=== PATIENT | female | born 1975 | race Two or more races ===

== ENCOUNTER 2025-01-25 04:31 | Emergency (ER) | payer MEDICAID, SELFPAY ==
[2025-01-25 04:32] VITALS: BMI 32.3
[2025-01-25 04:58] VITALS: BP 183/119; BP 200/119; PULSE 111; RESP 18; TEMP 37.2; O2SAT 100
--- NOTE | 2025-01-25 05:04 | XR_ITS ---
Examination: Ultrasound soft tissue scalp Technique: Grayscale sonographic images soft tissue scalp Date and time: January 25, 2025, 0710 hrs. Indications: Lump on the posterior head noticed 3 days ago. Findings: Soft tissues cystic solid mass with minimal vascularity in the posterior scalp at the area concern, 4.7 x 4.3 x 2.2 cm Impression: Recommend CT scan brain post intravenous contrast follow-up to assess partially cystic partially solid mass with minimal vascularity in the posterior scalp, 4.7 x 4.3 x 2.2 cm
--- NOTE | 2025-01-25 05:05 | PD.EDRME ---
Rapid Medical Screening Exam [facility] Arrival date/time: 01/25/25 04:31 49F with history of alcohol use presents to ED with several days of worsening painful growth on posterior scalp. Chief Complaint: Animal Bite Vital signs: Vital Signs Temperature 98.9 F 01/25/25 04:58 Pulse Rate 111 H 01/25/25 04:58 Respiratory Rate 18 01/25/25 04:58 Blood Pressure 183/119 H 01/25/25 04:58 Pulse Oximetry (%) 100 01/25/25 04:58 Oxygen Delivery Method Room Air 01/25/25 04:58
[2025-01-25] MEDS: HYDROcodone/APAP 5/325 TABLET 1 TAB PO (05:13)
[2025-01-25 06:18] LABS: Sed Rate (ESR) 33 mm/hr (0-20)
[2025-01-25 06:21] LABS: Basophils # (Auto) 0.1 Thou/mm3 (0.0-0.2); Basophils % (Auto) 0 % (0-2.5); Eosinophils # (Auto) 0.1 Thou/mm3 (0.0-0.5); Eosinophils % (Auto) 0 % (0-10); Hematocrit 37.6 % (36.0-46.0); Hemoglobin 12.0 g/dL (12.0-16.0); Immature Granulocytes Auto 0.08 Thou/mm3 (0.00-0.00); Lymphocytes # (Auto) 2.0 Thou/mm3 (1.0-4.8); Lymphocytes % (Auto) 10 % (10-50); Mean Corpuscular HGB Conc 31.9 g/dl (31.0-37.0); Mean Corpuscular Hemoglobin 26.5 pg (25.0-35.0); Mean Corpuscular Volume 83 fL (80-100); Monocytes # (Auto) 1.3 Thou/mm3 (0.0-0.8); Monocytes % (Auto) 7 % (0-12); Neutrophils # (Auto) 16.6 Thou/mm3 (1.8-7.7); Neutrophils % (Auto) 82 % (37-80); Nucleated Red Blood Cell # 0.00 Thou/mm3 (0.00-0.00); Nucleated Red Blood Cell % 0 /100 WBC (0); Platelet Count 361 Thou/mm3 (140-440); RDW Standard Deviation 41.2 fL (36.4-46.3); Red Blood Count 4.52 Miln/mm3 (4.00-5.20); White Blood Count 20.1 Thou/mm3 (3.6-11.0)
[2025-01-25 06:41] LABS: Alanine Aminotransferase 18 U/L (10-49); Albumin, Serum 4.5 gm/dL (3.5-5.0); Albumin/Globulin Ratio 1.6 (1.2-2.2); Alkaline Phosphatase 91 U/L (46-116); Anion Gap 9 (7-16); Aspartate Amino Transferase 21 U/L (0-34); BUN/Creatinine Ratio 11 Ratio (12-20); Bilirubin,Total 1.0 mg/dL (0.3-1.2); Blood Urea Nitrogen 8 mg/dL (9-23); C-Reactive Protein 7.6 mg/dL (0.0-0.9); Calcium 9.4 mg/dL (8.3-10.6); Calcium (Corrected) 9.4 mg/dL (8.5-10.1); Carbon Dioxide 28.2 mMol/L (20.0-31.0); Chloride 101 mMol/L (98-107); Creatinine (Component) 0.7 mg/dL (0.6-1.3); Estimated Creatinine Clearance 85.3 mL/min (>60); Globulin 2.9 gm/dL (2.3-3.5); Glucose 108 mg/dL (74-106); Osmolality,Calculated 274 (275-295); Potassium 3.6 mMol/L (3.4-5.1); Sodium 138 mMol/L (136-145); Total Protein 7.4 gm/dL (5.7-8.2); eGFR > 60 See Note
--- NOTE | 2025-01-25 07:42 | EDNOTE_ITS ---
ED Animal Bite RME/HPI General Chief Complaint: Animal Bite Stated Complaint: POSS SPIDER BITE ON NECK Time Seen by Provider: 01/25/25 05:18 Arrival date/time: 01/25/25 04:31 RME / HPI RME / HPI narrative: 01/25/25 04:31 49F with history of alcohol use presents to ED with several days of worsening painful growth on posterior scalp. Ms Avelar is a 49-year-old female with past medical history of alcohol use who presented to [facility] emergency department 01/25/2025 with a chief complaint of worsening painful growth of posterior scalp. Patient does not remember immediate contact with any animal and is unable to attribute the swelling to animal bite on questioning patient reports that she might have had an bug bite/spider bite. She reported that her swelling has gotten worse over the last days she has been using [id number] Tylenol for management of pain. She denies any other symptoms no focal neurological deficits, patient is hemodynamically stable, elevated blood pressure reading noted likely secondary to pain as patient is complaining of severe pain. Patient does report daily alcohol use denies any history of withdrawals. Related Data Previous Rx's ?Medication ?Instructions ?Recorded albuterol sulfate 90 mcg/actuation 2 puff inhalation Q 4H PRN 10/14/17 aerosol inhaler shortness of breath or wheez ing #18 grams loratadine 10 mg tablet 10 mg PO QDAY PRN allergy sy mptoms 10/14/17 #30 tabs clindamycin HCl 300 mg capsule 450 mg (1.5 x 300 mg) P O TID Scalp 01/25/25 Abscess 7 days #32 caps hydrocodone 5 mg-acetaminophen 325 1 tab PO TID PRN pa in (scale score 01/25/25 mg tablet 5-10) 7 days #21 tabs ibuprofen 800 mg tablet 800 mg PO Q8H PRN pain (scal e 01/25/25 score 1-5) 7 days #21 tabs Allergies Allergy/AdvReac Type Severity Reaction Status Date / Time No Known Allergies Allergy Verified 04/21/23 20:29 Review of Systems Review of Systems Systems Reviewed: All systems reviewed, normal except as documented Past Medical History Past Medical History Comments PMH COMMENT: PMH: Positive for alcohol use PSHx: Denies Allergies:NKDFA Social history: -Smoking: Denies -Alcohol Use: Daily Alcohol Use -Illicit Drug Use: Denies Family History: No Pertinent Family History ED Exam Narrative Physical exam: Physical Exam General: Awake and in moderate distress, crying with pain. Conversational. HEENT: Normocephalic, atraumatic, mucous membranes moist. Heart: Sinus tachycardia, no murmurs. Lungs: Clear to auscultation with no wheezing or crackles. Abdomen: Soft, nondistended, nontender, positive bowel sounds. ?No guarding or rebound tenderness. Neurologic: Alert and oriented x3, no gross neurological deficit, and patient able to move all 4 extremities. Extremities: No edema. Skin: Fluctuant swelling around 4 to 2 cm noted on left posterior scalp, with redness tenderness and clear drainage. Course Course Course Narrative: Patient presented to ED room from triage, white count elevated, tachycardia SIRS 2/4 sepsis alert initiated. Patient's lactate 0.7 will given 2 L LR bolus and will start on maintenance after to cover for 30 cc/kg per sepsis protocol. Patient will be given IV Unasyn, no history of diabetes no concern of Pseudomonas or MRSA for now. Soft tissue ultrasound ordered by triage shows cystic solid mass with minimal vascularity in the posterior scalp area 4.7 into 4.3 to 2.2 cm, radiology recommends CT brain with contrast for confirmation CT scan ordered, otherwise labs show white count 20.1, neutrophil 82%, 16.6 ESR 33, CRP 0.6. Glucose 108 osmolality 274 and BUN 8. In ED I&D, will consider consulting general surgery post CT scan results ordered PT/INR APTT. Elevated blood pressure reading 178/110 will be given hydralazine 10 mg IV x [address] shows no abnormal enhancing cerebellar or cerebral lesions irregular soft tissue mass occipital scalp Case discussed with general surgeon on-call Dr. Jaime who recommended I&D in the ED and close follow-up with him outpatient. Incision and drainage performed at bedside, consent obtained from patient, risks and benefits explained. Patient's hair shaved off, clear margins of the demarcated, local anesthesia given with 1% lidocaine, around 5 cc Patient made with 11 blade, serosanguineous drainage noted, Kellys forceps used to break the cyst pockets, around 5 to 8 cc serosanguineous drainage noted. There is suspicion of organized abscess, postdrainage abscess was packed. Pressure held on the scalp to control bleeding. Pressure dressing applied. Case discussed with Dr. Jaime regarding organization of abscess, he recommends discharging patient on clindamycin and follow-up in his office. Patient did receive 4 mg morphine prior to procedure and 2 mg postprocedure. Patient was monitored postprocedure and tolerated diet well. Patient did have elevated blood pressure reading and tachycardia which is attributed to the stress of procedure. Discharge instructions provided to the patient. Quality Measures Current suspected stage: sepsis Possible source: skin/soft tissue Blood cultures ordered: yes Antibiotic ordered: Yes Pertinent labs: 01/25/25 08:10 Lactic Acid 0.7 mMol/L (0.4-2.0) sepsis Orders Category Date Time Status Bedside Blood Glucose NOW Care 01/25/25 08:[address] Screening NOW Care 01/25/25 08:18 Completed Pile Driving Supervisor Q4H START 00 Care 01/25/25 07:44 Completed Continuous Pulse Oximetry NOW Care 01/25/25 07:44 Completed Insert IV NOW Care 01/25/25 07:43 Completed Obtain Tdap Consent X1 Care 01/25/25 07:47 Completed Strict Intake and Output Routine Care 01/25/25 08:[address] head/brain w con Stat Exams 01/25/25 08:18 Completed US soft tissue head neck Stat Exams 01/25/25 05:04 Completed Blood Culture (Lab) Stat Lab 01/25/25 08:00 Received CBC Stat Lab 01/25/25 06:02 Completed CMP [Comprehensive Metabolic Panel] Stat Lab 01/25/25 06:02 Completed CRP [C-Reactive Protein] Stat Lab 01/25/25 06:02 Completed ESR [Sed Rate (ESR)] Stat Lab 01/25/25 06:02 Completed INR [Prothrombin Time with INR] Stat Lab 01/25/25 06:02 Completed Lactate (Lactic Acid) Stat Lab 01/25/25 08:10 Completed PTT [Partial Thromboplastin Time] Stat Lab 01/25/25 06:02 Completed Ampicillin/Sulbac Inj [Unasyn Inj] 3 gm Med 01/25/25 07:41 Discontinued Sodium Chloride 0.9% (Pop) [NS 0.9% mini bag] 100 ml IV X1 HYDROcodone*/APAP 5/325 [[place] 5/325] Med 01/25/25 05:04 Discontinued 1 tab PO X1 ONE Labetalol IV [Trandate IV] Med 01/25/25 13:08 Discontinued 10 mg IVP X1 ONE Morphine* Inj Med 01/25/25 07:41 Discontinued 1 mg IVP X1 ONE Morphine* Inj Med 01/25/25 09:49 Discontinued 2 mg IVP Q2H PRN Morphine* Inj Med 01/25/25 11:24 Discontinued 2 mg IVP X1 ONE Morphine* Inj Med 01/25/25 12:13 Discontinued 2 mg IVP X1 ONE Morphine* Inj Med 01/25/25 11:24 Discontinued 4 mg IVP X1 ONE Ondansetron Inj [Zofran Inj] Med 01/25/25 07:41 Discontinued 4 mg IVP Q6HR PRN Ringers Lactated 1000 ml [Lactated Ringers] 1,000 ml Med 01/25/25 08:11 Discontinued IV 999 mls/hr Ringers Lactated 1000 ml [Lactated Ringers] 1,000 ml Med 01/25/25 08:23 Discontinued IV 999 mls/hr TET,DIP/PERT AC (Adult)-Tdap [Boostrix Adult (Tdap) Med 01/25/25 07:47 Discontinued Vacc] 0.5 ml IMI .ONCE ONE hydrALAZINE INJ [Apresoline Inj] Med 01/25/25 09:04 Discontinued 10 mg IVP X1 ONE Late Tray Request Routine Oth 01/25/25 12:28 Active Oxygen Delivery PRN RT 01/25/25 08:17 Completed Vital Signs Vital signs: Vital Signs Temperature 98.9 F 01/25/25 04:58 Pulse Rate 111 H 01/25/25 04:58 Respiratory Rate 18 01/25/25 04:58 Blood Pressure 183/119 H 01/25/25 04:58 Pulse Oximetry (%) 100 01/25/25 04:58 Oxygen Delivery Method Room Air 01/25/25 04:58 PROCEDURES: Abscess I/D Site: scalp Sedation/analgesia: other (Local) Local Anesthetic: lidocaine 1% Amount of anesthesia used (mL): 5 Technique: incised with #11 blade Amount of fluid expressed (mL): 5 Packing used?: iodoform Animal Bite MDM Narrative MDM Narrative:: #Scalp abscess status post I&D Given IV Unasyn x1, 2 L LR bolus, Tdap vaccine Soft tissue ultrasound ordered by triage shows cystic solid mass with minimal vascularity in the posterior scalp area 4.7 into 4.3 to 2.2 cm, radiology recommends CT brain with contrast for confirmation Labs show white count 20.1, neutrophil 82%, 16.6 ESR 33, CRP 0.6. Glucose 108 osmolality [address] Head [address] shows no abnormal enhancing cerebellar or cerebral lesions irregular soft tissue mass occipital scalp Case discussed with general surgeon on-call Dr. Jaime who recommended I&D in the ED and close follow-up with him outpatient. I&D Performed in ED. Case discussed with Dr. Jaime regarding organization of abscess post procedure, he recommends discharging patient on clindamycin and follow-up in his office. Patient's pain was managed inpatient, will be discharged on [place] and antibiotics Discharge instructions as below Case discussed with Attending Physician Dr. Julia Ta MD Internal Medicine PGY-2 Disclaimer: This note was dictated by speech recognition. Minor errors in aerodynamics teacher may be present due to voice recognition software. Patient data External records reviewed:: [facility] previous records Clinical information provided by:: patient Social determinants that could affect healthcare access:: alcohol use Patient has the following chronic illnesses:: Alcohol Use How is presenting disease/condition affected by chronic disease/condition?: uneffected by Evaluation data The following diagnostics were reviewed and interpreted by me:: lab results, radiology exam(s) and EKG tracing(s) Lab and/or radiology exams considered but not ordered:: None Interpretation Summary: Soft tissue ultrasound shows cystic solid mass with minimal vascularity in the posterior scalp area 4.7 into 4.[address] Brain w contrast shows no abnormal enhancing cerebellar or cerebral lesions irregular soft tissue mass occipital scalp Labs show white count 20.1, neutrophil 82%, 16.6 ESR 33, CRP 0.6. Glucose 108 osmolality 274 and BUN 8. Medications / Prescriptions Medications or Prescriptions considered but not ordered:: None Medication administrations:: Medication Administration History Discontinued Medications Hydrocodone Bitart/Acetaminophen (Hydrocodone/Apap 5/325 Tablet) 1 tab PO X1 ONE Stop: 01/25/25 05:05 Last Admin: 01/25/25 05:13 Dose: 1 tab Documented By: BALDOMERO Diphtheria/Tetanus/Acell Pertussis (Diphth,Pertuss(Acell),Tet Vac 0.5 Ml Syr- Adult) 0.5 ml IMi .ONCE ONE Stop: 01/25/25 07:48 Last Admin: 01/25/25 08:10 Dose: 0.5 ml Documented By: TM Hydralazine HCl (Hydralazine Inj 20 Mg/Ml Vial) 10 mg IVP X1 ONE Stop: 01/25/25 09:05 Last Admin: 01/25/25 09:31 Dose: 10 mg Documented By: ROSE Ampicillin Sodium/Sulbactam (Sodium 3 gm/ Sodium Chloride) 100 mls @ 200 mls/hr IV X1 ONE Stop: 01/25/25 07:42 Last Infusion: 01/25/25 08:41 Dose: Infused Documented By: Admin: 01/25/25 08:11 Dose: 200 mls/hr Documented By: ROSE Lactated Ringer's (Lactated Ringers) 1,000 mls @ 999 mls/hr IV .Q1H1M ONE Stop: 01/25/25 09:11 Last Infusion: 01/25/25 09:29 Dose: Infused Documented By: Admin: 01/25/25 08:28 Dose: 999 mls/hr Documented By: TM Lactated Ringer's (Lactated Ringers) 1,000 mls @ 999 mls/hr IV .Q1H1M ONE Stop: 01/25/25 09:23 Last Infusion: 01/25/25 10:01 Dose: Infused Documented By: Admin: 01/25/25 09:00 Dose: 999 mls/hr Documented By: ROSE Labetalol HCl (Labetalol Inj 5 Mg/Ml Vial 20 Ml) 10 mg IVP X1 ONE Stop: 01/25/25 13:09 Last Admin: 01/25/25 15:14 Dose: Not Given Documented By: TM Non-Admin Reason: VERBAL MD AT BEDSIDE Morphine Sulfate (Morphine Sulf Inj 4 Mg/Ml Vial) 1 mg IVP X1 ONE Stop: 01/25/25 07:42 Last Admin: 01/25/25 08:08 Dose: 1 mg Documented By: TM Morphine Sulfate (Morphine Sulf Inj 4 Mg/Ml Vial) 2 mg IVP Q2H PRN PRN Reason: PAIN SCALE 4-10(Mod-Sev Last Admin: 01/25/25 10:12 Dose: 2 mg Documented By: TM Morphine Sulfate (Morphine Sulf Inj 4 Mg/Ml Vial) 2 mg IVP X1 ONE Stop: 01/25/25 11:25 Last Admin: 01/25/25 12:27 Dose: Not Given Documented By: TM Non-Admin Reason: Discontinued Morphine Sulfate (Morphine Sulf Inj 4 Mg/Ml Vial) 4 mg IVP X1 ONE Stop: 01/25/25 11:25 Last Admin: 01/25/25 11:32 Dose: 4 mg Documented By: DO Morphine Sulfate (Morphine Sulf Inj 4 Mg/Ml Vial) 2 mg IVP X1 ONE Stop: 01/25/25 12:14 Last Admin: 01/25/25 12:21 Dose: 2 mg Documented By: TM Ondansetron HCl (Ondansetron Inj 2 Mg/Ml Inj 2 Ml) 4 mg IVP Q6HR PRN; Protocol PRN Reason: NAUSEA OR VOMITING Stop: 02/24/25 07:40 Last Admin: 01/25/25 08:09 Dose: 4 mg Documented By: TM As Above Consultations Consultation(s) initiated? (list below): Yes Consultation #1 (Physician, Specialty, Details): Dr Jaime, General Surgery, Abscess recs as above Diagnosis Differential diagnosis animal bite: other Most likely diagnosis given after review of the tests above:: Scalp Abscess Admission Indicated Admission indicated?: not indicated Admission Request Was there a request for admission?: No Disposition Plan Disposition Plan: Discharge Discharge Attestation Discharge Attestation: The patient and all family members were given an opportunity to ask questions and understood the discharge instructions. Discharge instructions specifically effects, indications for sooner follow up or return to the emergency department, and the expected course of current diagnosis. Patient condition: Stable Discharge Plan Plan Patient Disposition: HOME (Self Care) Health Concerns: -Your abscess was drained and packed in the ED today. -Keep the dressing dry and clean for 24 hours, Pleae follow up with Dr Jaime to remove the packing if you are unable to see him in the next 24-48 hour return to ED for removal of packing and wound check. -Take Clindamycin 450 mg (1.5 Tablets) three times a day for 7 days -Follow up with Dr Jaime (General Surgeon) within 1 week for the abscess, Dr Jaime will remove the packing. Office . -Return to ER if there is excessive drainage, bleeding, swelling, warmth and pain for the wound. -Take ibuprofen 800mg every 8 hours as needed for Pain (1-5) and [place] every e ight hours as needed for Pain (6-10). -Stop drinking alcohol, mantain adequate hydration, take OTC multivitamins to assist with wound healing (vitamin C and Zinc) -Follow up with [facility] in 1 week Prescriptions/Referrals Prescriptions/Med Rec: New clindamycin HCl 300 mg capsule 450 mg PO TID 7 Days Qty: 32 0RF hydrocodone-acetaminophen 5-325 mg tablet 1 tab PO TID MDD 15-975 PRN (Reason: pain (scale score 5-10)) 7 Days Qty: 21 0RF ibuprofen 800 mg tablet 800 mg PO Q8H PRN (Reason: pain (scale score 1-5)) 7 Days Qty: 21 0RF Continued albuterol sulfate 90 mcg/actuation HFA aerosol inhaler 2 puff INH Q4H PRN (Reason: shortness of breath or wheezing) Qty: 18 0RF Rx Instructions: administer with spacer loratadine 10 mg tablet 10 mg PO QDAY PRN (Reason: allergy symptoms) Qty: 30 0RF Discontinued ibuprofen 600 mg tablet 600 mg PO TID PRN (Reason: pain) Qty: 30 0RF Referrals: Zhang Cline MD [Primary Care Provider, Family Practice] - In 1 week Tommie Jaime MD [Physician, General Surgery] - In 1 week Problem List Clinical Impression: Abscess of scalp Patient/Caregiver Discharge Instructions Education Materials: ED Abscess, Incision And Drainage Print Language: Swedish Stand Alone Forms: Kelly Award Info., Patient Portal Info Letter
[2025-01-25] MEDS: MORPHINE SULF INJ 4 MG/ML VIAL 1 MG IVP (08:08)
[2025-01-25] MEDS: ONDANSETRON INJ 2 MG/ML INJ 2 ML 4 MG IVP (08:09)
[2025-01-25] MEDS: DIPHTH,PERTUSS(ACELL),TET VAC 0.5 ML SYR- ADULT IMi (08:10)
[2025-01-25] MEDS: AMPICILLIN/SULBAC INJ 3 GM in SODIUM CHLORIDE 0.9% (POP) 100 ML IV (08:11)
--- NOTE | 2025-01-25 08:18 | XR_ITS ---
Examination: CT brain head with contrast. 2-D sagittal reconstructions. 2-D coronal reconstructions. Date and time of exam:January 25, 2025 1020 hours INDICATIONS: Partially solid partially cystic mass with vascularity in the posterior scalp 4.7 x 4.3 x 2.2 cm on ultrasound this a.m. CTDI: vol (mGy): 53 DLP: (mGycm):1170 Technique: Axial sections of the brain have been obtained. 5 mm slice thickness images have been obtained. Intravenous administration 50 cc Isovue-370. Low dose protocols were performed. One or more of the following dose reduction techniques were used; automated exposure control, adjustment of the mA and/or KV according to patient size, use of iterative reconstruction technique. Findings: Ventricles normal size and configuration. No mass effect upon the ventricular system. Fourth ventricle midline. No abnormal enhancing cerebellar or cerebral lesions Irregular soft tissue mass occipital scalp, axial image 32, sagittal image 22 medial lateral dimension 6.4 cm AP dimension at 2 1.1 cm, cephalad caudad dimension 3.6 cm This mass does not and PD cranial vault The cranial vault appears intact Severe opacification left maxillary antrum left nasal airway IMPRESSION: No abnormal enhancing cerebellar or cerebral lesions Irregular soft tissue mass occipital scalp as above, differential would include soft tissue tumor
[2025-01-25 08:23] LABS: Lactate (Lactic Acid) 0.7 mMol/L (0.4-2.0)
[2025-01-25] MEDS: RINGERS LACTATED 1000 ML 1,000 ML 999 ML IV ×2 (08:28→09:00)
[2025-01-25 08:38] LABS: INR 1.0 (0.9-1.3); Partial Thromboplastin Time 25.4 Seconds (22.0-36.0); Prothrombin Time 10.9 Seconds (9.0-12.2)
[2025-01-25 09:31] VITALS: BP 175/119; PULSE 92
[2025-01-25] MEDS: hydrALAZINE INJ 20 MG/ML VIAL 10 MG IVP (09:31)
--- NOTE | 2025-01-25 09:49 | PC.NURSE ---
pt request more pain medication, md naik made aware
[2025-01-25] MEDS: MORPHINE SULF INJ 4 MG/ML VIAL 2 MG IVP ×2 (10:12→12:21)
[2025-01-25 10:35] VITALS: BP 174/119; PULSE 102; RESP 19; TEMP 36.9; O2SAT 100
[2025-01-25] MEDS: MORPHINE SULF INJ 4 MG/ML VIAL IVP (11:32)
[2025-01-25 12:49] VITALS: BP 192/118; PULSE 110; RESP 20; TEMP 37.4; O2SAT 98
--- NOTE | 2025-01-25 15:14 | PC.NURSE ---
PER MD CRAIG, PT NOT TO GET MED PRIOR TO D/C
--- NOTE | 2025-01-25 17:47 | PD.RESPROC ---
PROCEDURES: Procedure Date / Time 01/25/25 1145 Procedural Time Out Time out performed: Yes Abscess I/D Indication(s): Scalp Abscess Incision and drainage performed at bedside, consent obtained from patient, risks and benefits explained. Patient's hair shaved off, clear margins of the demarcated, local anesthesia given with 1% lidocaine, around 5 cc Patient made with 11 blade, serosanguineous drainage noted, Kellys forceps used to break the cyst pockets, around 5 to 8 cc serosanguineous drainage noted. There is suspicion of organized abscess, postdrainage abscess was packed. Pressure held on the scalp to control bleeding. Pressure dressing applied. Case discussed with Dr. Jaime regarding organization of abscess, he recommends discharging patient on clindamycin and follow-up in his office. Patient did receive 4 mg morphine prior to procedure and 2 mg postprocedure. Patient was monitored postprocedure, stable for discharge Procedure performed under supervision of Attending ED Physician Dr. Julia Ta MD Internal Medicine PGY-2 Disclaimer: This note was dictated by speech recognition. Minor errors in logging crew supervisor may be present due to voice recognition software. Informed consent obtained: from patient Time out done, and the following verified: correct patient, side and site, procedure, patient position and implants and/or equipment Site: scalp Sedation/analgesia: other (Lidocaine-topical) Anesthetic used: lidocaine 1% Technique: incised with #11 blade Amount of fluid (mL): 5 Irrigation: Yes Packing used?: iodoform EBL(ml): 10
== END 2025-01-25 14:45 | disposition home or self-care (01) ==
PROVIDERS: Physician Assistant; PCP Family Medicine
DX: L02.811 Cutaneous abscess of head [any part, except face] (principal); Z23 Encounter for immunization
CPT/HCPCS: 10060; 36415; 70460; 76536; 80053; 81001; 83605; 85025; 85610; 85652; 85730; 86140; 87040; 90471; 90715; 96361; 96365; 96375; 96376; 99284; A4649; J0295; J0360; J2270; J2405; J7120; Q9967; A9270

== ENCOUNTER 2025-01-30 13:29 | Emergency (ER) | payer MEDICAID, SELFPAY ==
[2025-01-30 13:45] VITALS: BP 170/99; PULSE 100; RESP 18; TEMP 36.8; O2SAT 99; BMI 24.4
--- NOTE | 2025-01-30 13:53 | XR_ITS ---
Examination: PA lateral chest 2 views TECHNIQUE: Upright PA lateral chest 2 views Date and time: January 30, 2025 1422 hours INDICATIONS: Chest pain today. FINDINGS: Normal heart size. No pneumonia or pulmonary edema The osseous structures are intact IMPRESSION: No active disease
--- NOTE | 2025-01-30 13:53 | EKG_ITS ---
[facility] Test Date: 2025-01-30 Pat Name: JASEN SIERRA Department: Room: - Gender: Female Digital Strategy Manager: : 1975 Requested By: Jamar Lozano Order Number: [id number] Reading MD: Jamar Lozano Measurements Intervals [place] Rate: 98 P: 49 TN: 166 QRS: 42 QRSD: 87 T: 82 QT: 356 QTc: 455 Interpretive Statements SINUS RHYTHM NONSPECIFIC T-WAVE ABNORMALITY No previous ECG available for comparison /store/S0/[id number]/ecg/[id number].pdf
--- NOTE | 2025-01-30 13:54 | PD.EDRME ---
Rapid Medical Screening Exam E Arrival date/time: 01/30/25 13:29 49-year-old female with no known medical history presents to the emergency room with a chief complaint of palpitations and anxiety. Patient states she is a daily alcoholic and has not had a drink of alcohol in 5 days. Patient also states she has an abscess to the back of her head that she would like to get rechecked I have greeted and performed a focused initial assessment of this patient. A comprehensive ED assessment and evaluation of the patient, analysis of all test results, and completion of the medical decision making process will be conducted by additional ED providers. Chief Complaint: Skin/Abscess/Foreign Body Time Seen by Provider: 01/30/25 13:31 Vital signs: Vital Signs Temperature 98.2 F 01/30/25 13:45 Pulse Rate 100 01/30/25 13:45 Respiratory Rate 18 01/30/25 13:45 Blood Pressure 170/99 H 01/30/25 13:45 Pulse Oximetry (%) 99 01/30/25 13:45 Oxygen Delivery Method Room Air 01/30/25 13:45 Vital signs reviewed by provider: Yes
[2025-01-30 14:33] LABS: Basophils # (Auto) 0.1 Thou/mm3 (0.0-0.2); Basophils % (Auto) 1 % (0-2.5); Eosinophils # (Auto) 0.3 Thou/mm3 (0.0-0.5); Eosinophils % (Auto) 3 % (0-10); Hematocrit 39.2 % (36.0-46.0); Hemoglobin 12.2 g/dL (12.0-16.0); Immature Granulocytes Auto 0.04 Thou/mm3 (0.00-0.00); Lymphocytes # (Auto) 2.5 Thou/mm3 (1.0-4.8); Lymphocytes % (Auto) 26 % (10-50); Mean Corpuscular HGB Conc 31.1 g/dl (31.0-37.0); Mean Corpuscular Hemoglobin 26.2 pg (25.0-35.0); Mean Corpuscular Volume 84 fL (80-100); Monocytes # (Auto) 0.7 Thou/mm3 (0.0-0.8); Monocytes % (Auto) 7 % (0-12); Neutrophils # (Auto) 5.8 Thou/mm3 (1.8-7.7); Neutrophils % (Auto) 62 % (37-80); Nucleated Red Blood Cell # 0.00 Thou/mm3 (0.00-0.00); Nucleated Red Blood Cell % 0 /100 WBC (0); Platelet Count 476 Thou/mm3 (140-440); RDW Standard Deviation 41.2 fL (36.4-46.3); Red Blood Count 4.66 Miln/mm3 (4.00-5.20); White Blood Count 9.4 Thou/mm3 (3.6-11.0)
[2025-01-30 14:46] LABS: B-Type Natriuretic Peptide 26 pg/mL (0-100); INR 0.9 (0.9-1.3); Partial Thromboplastin Time 24.2 Seconds (22.0-36.0); Prothrombin Time 10.4 Seconds (9.0-12.2)
[2025-01-30 14:48] LABS: Alanine Aminotransferase 35 U/L (10-49); Albumin, Serum 4.5 gm/dL (3.5-5.0); Albumin/Globulin Ratio 1.4 (1.2-2.2); Alcohol, Blood Medical < 3.0 mg/dL (0-10.0); Alkaline Phosphatase 98 U/L (46-116); Anion Gap 9 (7-16); Aspartate Amino Transferase 42 U/L (0-34); BUN/Creatinine Ratio 11 Ratio (12-20); Bilirubin,Total 0.2 mg/dL (0.3-1.2); Blood Urea Nitrogen 8 mg/dL (9-23); Calcium 9.4 mg/dL (8.3-10.6); Calcium (Corrected) 9.4 mg/dL (8.5-10.1); Carbon Dioxide 28.8 mMol/L (20.0-31.0); Chloride 100 mMol/L (98-107); Creatinine (Component) 0.7 mg/dL (0.6-1.3); Estimated Creatinine Clearance 81.3 mL/min (>60); Globulin 3.2 gm/dL (2.3-3.5); Glucose 108 mg/dL (74-106); Magnesium 2.0 mg/dL (1.6-2.6); Osmolality,Calculated 274 (275-295); Potassium 3.9 mMol/L (3.4-5.1); Sodium 138 mMol/L (136-145); Total Protein 7.7 gm/dL (5.7-8.2); Troponin I 0.020 ng/mL (0.0-0.045); eGFR > 60 See Note
[2025-01-30 15:27] LABS: Collection Type, Urine Clean Catch
[2025-01-30 15:33] LABS: HCG Qualitative,Urine Negative
[2025-01-30 15:35] LABS: Bilirubin,Urine Negative (Negative); Blood,Urine Trace (Negative); Clarity,Urine Clear (Clear/Hazy); Color,Urine Lt-Yellow (Lt Yel-Yel); Culture Indicated,Urine Not Indicated; Glucose, Urine Negative (Negative); Ketones,Urine Negative (Negative); Leukocyte Esterase,Urine Negative (Negative); Nitrite,Urine Negative (Negative); PH,Urine 6.0 (5.0-7.0); Protein,Urine Trace (Neg - Trace); RBC,Urine 5 /hpf (0-3); Specific Gravity,Urine 1.032 (1.001-1.035); Squamous Epithelial Cell,Urine 2 /hpf (0-5); Urobilinogen,Urine Negative mg/dL (0.0-1.0); WBC,Urine 2 /hpf (0-5)
[2025-01-30 15:49] LABS: Amphetamine/Methamp Scrn,U Positive (Negative); Barbiturate Screen,Urine Negative (Negative); Benzodiazepines Screen,Urine Negative (Negative); Benzoylecgonine Screen, Ur Negative (Negative); Fentanyl Screen,Urine Negative (Negative); Opiate Screen,Urine Positive (Negative); THC Screen,Urine Positive (Negative)
--- NOTE | 2025-01-30 16:34 | EDNOTE_ITS ---
<Statement entered by Grecia Musa MD - 01/31/25 06:14> As co-signing physician, I was present and available for consult prn. I concur with the plan and care as documented by the midlevel provider. ED General RME/HPI General Chief complaint: Skin/Abscess/Foreign Body Stated complaint: Abscess to left neck X 4 days Time Seen by Provider: 01/30/25 13:31 Arrival date/time: 01/30/25 13:29 CC: Packing recheck from an abscess in the back of the scalp, withdrawal from alcohol HPI patient stopped drinking 5 days ago. The patient was seen here 3 days ago for I&D of an abscess in the back of her head. Patient states she is not jittery she is denies any hallucinations nausea vomiting shortness of breath difficulty breathing. States that she has not had any alcohol for 5 days. Patient is awake alert oriented direct eye contact nontoxic-appearing RME / HPI RME / HPI narrative: 01/30/25 13:29 49-year-old female with no known medical history presents to the emergency room with a chief complaint of palpitations and anxiety. Patient states she is a daily alcoholic and has not had a drink of alcohol in 5 days. Patient also states she has an abscess to the back of her head that she would like to get re checked I have greeted and performed a focused initial assessment of this patient. A comprehensive ED assessment and evaluation of the patient, analysis of all test results, and completion of the medical decision making process will be conducted by additional ED providers. Related Data Previous Rx's ?Medication ?Instructions ?Recorded albuterol sulfate 90 mcg/actuation 2 puff inhalation Q 4H PRN 10/14/17 aerosol inhaler shortness of breath or wheez ing #18 grams loratadine 10 mg tablet 10 mg PO QDAY PRN allergy sy mptoms 10/14/17 #30 tabs clindamycin HCl 300 mg capsule 450 mg (1.5 x 300 mg) P O TID Scalp 01/25/25 Abscess 7 days #32 caps hydrocodone 5 mg-acetaminophen 325 1 tab PO TID PRN pa in (scale score 01/25/25 mg tablet 5-10) 7 days #21 tabs ibuprofen 800 mg tablet 800 mg PO Q8H PRN pain (scal e 01/25/25 score 1-5) 7 days #21 tabs Allergies Allergy/AdvReac Type Severity Reaction Status Date / Time No Known Allergies Allergy Verified 01/30/25 13:34 Review of Systems Review of Systems Narrative Review of Systems: GEN: No fever, no chills, no weight loss EYES: No discharge, no visual changes, no pain HEENT: No ear pain, no congestion, no sore throat PULM: No shortness of breath, no cough, no congestion CV: No chest pain, no dyspnea on exertion, no palpitations GI: No nausea, no vomiting, no diarrhea, no pain, no constipation : No frequency, no urgency, no dysuria MUSC/SKEL: No joint pain, no back pain SKIN: No rash PSYCH: No hallucinations, no depression HEME/LYMPH: No easy bleeding or bruising tendencies NEURO: No weakness, no headache Past Medical History Past Medical History CARDIAC: Negative Congestive Heart Failure RESPIRATORY: Negative Chronic Obstructive Pulmonary Disease (COPD) GENITOURINARY: Negative Renal Disease ENDOCRINE: Negative Diabetes Mellitus Type 1 or Diabetes Mellitus Type 2 Social History SMOKING STATUS: Former smoker ED Exam Narrative Physical exam: [General: Not in any acute distress Head normocephalic, posterior scalp occiput abscess packing removed. 2 cm diameter and 2 cm deep cavity clean dry with small amount of bloody oozing no exudate no surrounding erythema. No other depressions abscesses or open lesions in the scalp. HEENT: Eyes pupils are PERRLA EOMs are intact mouth pink moist membranes uvula is midline swallow symmetrical. All of the substance of HEENT are within acceptable limits Neck is supple nontender Chest equal chest rise nontender to palpation Respiratory: Clear to auscultation no wheezes crackles or rubs CV: Rate rhythm is regular no murmurs rubs or clicks Abdomen is soft nontender no masses positive bowel sounds all 4 quadrants Back: No CVA tenderness no spinous process tenderness from cervical spine thoracic and lumbar spine Skin: Intact no petechiae rash induration ulceration or crepitus Extremities: Moving all extremity against resistance cap refill less than 2 seconds neurosensory intact Neuro: Awake alert oriented x3 Glascow coma 15 no focal deficits] Course Course Course Narrative: At the time of my exam the patient is not tachycardic or hypertensive at this time I am comfortable discharging the patient home she has no signs of withdrawal from the alcohol bipolar is noted that she is positive for meth for amphetamine and opiates. Abscess in the back of the head will heal ultimately if she keeps the area clean and dry. Quality Measures none Orders Category Date Time Status EKG (ED ONLY) *Do not use* NOW Care 01/30/25 13:53 Completed EKG (ED Only) Stat Exams 01/30/25 13:53 Draft XR chest 2V Stat Exams 01/30/25 13:53 Completed Alcohol, Blood Medical Stat Lab 01/30/25 14:16 Completed B-Type Natriuretic Peptide Stat Lab 01/30/25 14:16 Completed CBC Stat Lab 01/30/25 14:16 Completed Comprehensive Metabolic Panel Stat Lab 01/30/25 14:16 Completed Drug Screen,Urine Stat Lab 01/30/25 15:19 Completed HCG Qualitative,Urine Stat Lab 01/30/25 15:19 Completed Magnesium Stat Lab 01/30/25 14:16 Completed Partial Thromboplastin Time Stat Lab 01/30/25 14:16 Completed Prothrombin Time with INR Stat Lab 01/30/25 14:16 Completed Troponin I Stat Lab 01/30/25 14:16 Completed Urinalysis, C/S if Indicated Stat Lab 01/30/25 15:19 Completed Vital Signs Vital signs: Vital Signs Temperature 98.2 F 01/30/25 13:45 Pulse Rate 100 01/30/25 13:45 Respiratory Rate 18 01/30/25 13:45 Blood Pressure 170/99 H 01/30/25 13:45 Pulse Oximetry (%) 99 01/30/25 13:45 Oxygen Delivery Method Room Air 01/30/25 13:45 Discharge Plan Plan Patient Disposition: HOME (Self Care) Patient condition on transfer: Stable Prescriptions/Referrals Prescriptions/Med Rec: No Action albuterol sulfate 90 mcg/actuation HFA aerosol inhaler 2 puff INH Q4H PRN (Reason: shortness of breath or wheezing) Qty: 18 0RF Rx Instructions: administer with spacer loratadine 10 mg tablet 10 mg PO QDAY PRN (Reason: allergy symptoms) Qty: 30 0RF clindamycin HCl 300 mg capsule 450 mg PO TID 7 Days Qty: 32 0RF hydrocodone-acetaminophen 5-325 mg tablet 1 tab PO TID MDD 15-975 PRN (Reason: pain (scale score 5-10)) 7 Days Qty: 21 0RF ibuprofen 800 mg tablet 800 mg PO Q8H PRN (Reason: pain (scale score 1-5)) 7 Days Qty: 21 0RF Referrals: Zhang Cline MD [Primary Care Provider, Family Practice] - In 1 week Problem List Clinical Impression: Abscess of scalp, Adverse effect of methamphetamines, initial encounter Patient/Caregiver Discharge Instructions Education Materials: Addiction: Getting Help, Addiction: Your Treatment Options, ED Abscess, Incision And Drainage Additional Instructions: Continue to stop drinking alcohol and then focus on street drugs. Follow-up with your primary care doctor. Keep the abscess site clean and dry. Print Language: Latvian Stand Alone Forms: [employer] Info., Work/School Release, Patient Portal Info Letter PA/SLIP COVER CUTTER Supervising Physician PA/SLIP COVER CUTTER Supervising Physician: Tim Perea ENP [facility] Clinical Information Provided by patient Medical Records Reviewed [facility] Meds/Rx Considered, not Ordered None Labs/Rad/Tests considered, not Ordered None Chronic Illness/Social Conditions which may negatively complicate care or outcome(s)-explain: ETOH/drugs/substance abuse EKG EKG Interpretation narrative: EKG performed at 1358 shows a ventricular rate of 98 OH interval 166 QRS of 8 7 QTc of 411 this is normal sinus rhythm. Lab Interpretation Lab(s) interpretation(s): CBC shows no acute leukocytosis anemia thrombocytopenia Coags within acceptable limits CMP shows glucose of 108 no other electrolyte imbalances renal impairment transaminitis or T. bili elevation. Troponin and BNP are within acceptable limits Urine is negative for UTI. U tox is positive for amphetamines opiates and marijuana. Alcohol level is 0.
[2025-01-30 17:15] VITALS: BP 198/117; PULSE 89
[2025-01-30 18:41] VITALS: BP 146/97; PULSE 93; RESP 18; TEMP 36.9; O2SAT 97
== END 2025-01-30 18:41 | disposition home or self-care (01) ==
PROVIDERS: Emergency Provider Nurse Practitioner Family; PCP Family Medicine
DX: L02.811 Cutaneous abscess of head [any part, except face] (principal); T43.655A Adverse effect of methamphetamines, initial encounter; R94.31 Abnormal electrocardiogram [ECG] [EKG]
CPT/HCPCS: 36415; 71046; 80053; 80307; 80320; 81001; 81025; 83735; 83880; 84484; 85025; 85610; 85730; 93005; 99283; A9270; G0480